=== PATIENT | male | born 1970 | race Caucasian/White ===

== ENCOUNTER → 2018-05-05 | Outpatient (REF) | payer OTHER | LOC: M LAB REF 16:14 | DX: L08.9 Local infection of the skin and subcutaneous tissue, unspecified (principal) ==

== ENCOUNTER → 2019-11-29 | Outpatient (CLI) | payer OTHER ==
--- NOTE | 2019-11-30 07:24 | REP ---
LEFT ELBOW SERIES: Five views. HISTORY: Lateral epicondylitis left elbow. FINDINGS: There is mild coronoid process spurring. No fracture is seen. There is no evidence of joint effusion. No medial or lateral epicondylar spurring or erosive changes seen. IMPRESSION: Minimal coronoid process spurring. Otherwise negative. Electronically Signed by Adrien Peters MD 11/30/2019 10:50 A
== END ==
LOC: M WUC 12:24
PROVIDERS: ATTEND Physician Assistant
DX: M77.12 Lateral epicondylitis, left elbow (principal)